=== PATIENT | male | born 1955 | race Caucasian/White ===

== ENCOUNTER 2017-01-16 12:50 | Day surgery (SDC) | payer BC ==
[~2017-01-16 12:50] MED LIST: ANTIVERT25 MG PO; ATIVAN0.5 MG PO; B-COMPLEX PLUS1 TAB PO; BENTYL20 MG PO; BIAXIN XL500 MG PO; BL MAXEPA CAPSU1 CAP PO; CENTURY CARDIO1 EAC1 PO; CINNAMON OIL MC; CIPRO500 MG PO; CIPROFLOXACIN250 M1 PO; CITRUCEL479 GM PO; COLACE100 M1 PO; COMPAZINE10 M PO; CPAP; EQL FISH OIL 1,1 CA1 PO; FINASTERIDE PO; FISH OIL 11000 MG/CA PO; FISH OIL PO; FLOMAX0.4 M1 PO; FLOMAX0.4 MG PO; GLUCOPHAGE XR500 MG PO; GLUCOSAMINE CH1 EAC8 PO; ONCE DAILY1 EACH PO; OSTEO BI-FLEX1 EAC1 PO; PYRIDIUM200 M1 PO; STOP THE FOLLOWING:; TOVIAZ8 MG PO; TUMS500 M1 PO; UNIRETIC PO; VESICARE5 M1 PO; VESICARE5 MG PO; VITAMIN B COMP1 EAC1 PO; VITAMIN B PO; ZOFRAN ODT4 MG/UDTAB PO
[2017-01-16 14:10] LABS: PROTHROMBIN TIME 12.1 SECONDS (9.0-13.6)
[2017-01-16 14:19] LABS: URINE BILIRUBIN NEGATIVE (NEG); URINE BLOOD NEGATIVE (NEG); URINE GLUCOSE (UA) NEGATIVE (NEG); URINE KETONE NEGATIVE (NEG); URINE LEUKOCYTE ESTERASE NEGATIVE (NEG); URINE NITRITE NEGATIVE (NEG); URINE PROTEIN NEGATIVE (NEG); URINE SPECIFIC GRAVITY 1.015 (1.003-1.030)
[2017-01-16 14:23] LABS: URINE APPEARANCE CLEAR; URINE COLOR YELLOW
[2017-01-17] MEDS ORDERED: CIPRO250 M2 PO (10:30)
[2017-01-17] MEDS ORDERED: PERCOCET 5-3251 EACH PO (10:30)
== END 2017-01-17 11:07 ==
LOC: SHSB 12:50 → ORW 16:18 → PACU 16:56 → 5WD 19:00
PROVIDERS: Urology
PROC: 0TBC8ZZ Excision of Bladder Neck, Via Natural or Artificial Opening Endoscopic (ICD-10-PCS; principal; 2017-01-16)
DX: N32.0 Bladder-neck obstruction (principal); I10 Essential (primary) hypertension; E66.01 Morbid (severe) obesity due to excess calories; E11.9 Type 2 diabetes mellitus without complications; N40.1 Benign prostatic hyperplasia with lower urinary tract symptoms; R39.15 Urgency of urination; G47.33 Obstructive sleep apnea (adult) (pediatric); Z79.2 Long term (current) use of antibiotics; Z79.899 Other long term (current) drug therapy; Z88.0 Allergy status to penicillin; Z88.5 Allergy status to narcotic agent; Z83.3 Family history of diabetes mellitus; Z90.49 Acquired absence of other specified parts of digestive tract; Z90.79 Acquired absence of other genital organ(s); Z98.890 Other specified postprocedural states
CPT/HCPCS: J1956; J3010

== ENCOUNTER 2017-03-11 12:40 | Emergency (ER) | payer BC ==
[~2017-03-11 12:40] MED LIST changes: +CIPRO250 M2 PO; +PERCOCET 5-3251 EACH PO
[2017-03-11] MEDS ORDERED: GLUCOPHAGE XR500 M1 PO (12:57)
[2017-03-11 13:13] LABS: BASO % 0.3 % (0-2); EOS % 0.9 % (0-7); EOSINOPHIL ABSOLUTE COUNT 0.1 tho/cmm (0.0-0.7); HCT-HEMATOCRIT 47.3 % (36.0-53.5); HGB-HEMOGLOBIN 16.7 gm/dl (13.5-17.0); IMMATURE GRANULOCYTES ABSOLUTE 0.02 tho/cmm (0-0.03); IMMATURE GRANULOCYTES PERCENT 0.2 % (0-0.3); LYMPH % 16.4 % (20-45); LYMPH ABSOLUTE COUNT 1.5 tho/cmm (0.8-4.5); MCH (MEAN CORPUSCULAR HGB) 30.6 pg (28.0-32.0); MCHC MEAN CORPUSCULAR HGB CONC 35.3 % (32.0-36.0); MCV (MEAN CELL VOLUME) 86.6 fl (82.0-96.0); MEAN PLATELET VOLUME 9.7 cmc (9.4-12.4); MONO % 8.6 % (0-12); MONOCYTE ABSOLUTE COUNT 0.8 tho/cmm (0.0-1.2); NEUTROPHIL ABSOLUTE COUNT 6.9 tho/cmm (1.6-8.0); NEUTROPHIL-AUTOMATED 6.9 tho/cmm (1.6-8.0); NEUTROPHILS % 73.6 % (40-80); PLATELET COUNT 188 tho/cmm (150-450); RED BLOOD COUNT 5.46 mil/cmm (4.40-5.70); RED CELL DISTRIBUTION WIDTH 12.6 % (12.4-16.4); WHITE BLOOD COUNT 9.3 tho/cmm (4.0-10.0)
[2017-03-11 13:21] LABS: URINE BILIRUBIN NEGATIVE (NEG); URINE BLOOD NEGATIVE (NEG); URINE GLUCOSE (UA) NEGATIVE (NEG); URINE KETONE NEGATIVE (NEG); URINE LEUKOCYTE ESTERASE NEGATIVE (NEG); URINE NITRITE NEGATIVE (NEG); URINE PROTEIN MODERATE (NEG)
[2017-03-11 13:22] LABS: URINE APPEARANCE CLEAR; URINE COLOR YELLOW
[2017-03-11 13:35] LABS: ALB/GLOB RATIO 0.8 (0.8-2.0); ALBUMIN 3.7 g/dl (3.5-5.0); ALKALINE PHOSPHATASE 74 U/L (33-138); ALT/SGPT 59 U/L (12-78); BILIRUBIN,TOTAL 0.5 mg/dl (0.0-1.5); BLOOD UREA NITROGEN 14 mg/dl (6-24); C-REACTIVE PROTEIN 2.2 mg/dl (0-0.9); CALCIUM 9.5 mg/dl (8.5-10.5); CARBON DIOXIDE-VENOUS 27 mmol/L (22-32); CHLORIDE 104 mmol/l (96-110); GLUCOSE 166 mg/dL (70-110); LIPASE 206 U/L (73-393); SODIUM 137 mmol/L (135-145); eGFR VALUE FOR BLACK >90 mL/Min
[2017-03-11 13:38] LABS: URINE EPITHELIAL CELLS 0-1 /[HPF] (0-10); URINE RBC 0 /[HPF] (0-5); URINE WBC 0 /[HPF] (0-5)
[2017-03-11 13:43] LABS: ANION GAP 10 mmol/L (0-20); AST/SGOT 34 U/L (10-40); POTASSIUM 4.1 mmol/L (3.7-5.1)
[2017-03-11] MEDS ORDERED: FLAGYL500 M1 PO (14:24)
[2017-03-11] MEDS ORDERED: CIPRO500 M2 PO (14:24)
[2017-03-11] MEDS ORDERED: ZOFRAN4 M2 PO (14:24)
[2017-03-11] MEDS ORDERED: TRAMADOL HCL50 M2 PO (14:24)
== END 2017-03-11 14:37 ==
LOC: EDMED 12:40
PROVIDERS: Emergency Medicine
DX: K57.92 Diverticulitis of intestine, part unspecified, without perforation or abscess without bleeding (principal); E11.9 Type 2 diabetes mellitus without complications; M19.90 Unspecified osteoarthritis, unspecified site; Z90.49 Acquired absence of other specified parts of digestive tract
CPT/HCPCS: J7030; Q9967